=== PATIENT | female | born 1950 | race Caucasian/White ===

== ENCOUNTER 2020-08-25 09:16 | Inpatient (IN) | payer MEDICARE ==
[~2020-08-25 09:16] MED LIST: ASPIRIN EC81 MG PO; BUSPIRONE HCL10 MG PO; CEFDINIR300 MG PO; COZAAR50 MG PO; LEXAPRO20 MG PO; LIPITOR20 MG PO; NEURONTIN300 MG PO; NORVASC5 MG PO; PRILOSEC20 MG PO
[2020-08-25 09:43] LABS: BASOPHIL 0.3 % (0-2); EOSINOPHIL 0.5 % (0-7); HCT 35.3 % (37.0-47.0); HGB 11.7 g/dl (12.5-16.0); LYMPHOCYTE 29.5 % (15-48); MCH 28.3 pg (25.0-31.0); MCHC 33.1 g/dL (32.0-36.0); MCV 85.3 fL (78.0-100.0); MONOCYTE 8.2 % (0-12); MPV 11.2 fL (6.0-9.5); NRBC 0; PLT 207 K/uL (150-400); RBC 4.14 M/uL (4.20-5.40); RDW 15.1 % (11.5-14.0); WBC 9.8 K/uL (4.0-10.5)
[2020-08-25 09:46] LABS: INR 1.12 (0.9-1.2); PROTHROMBIN TIME 13.7 SECONDS (11.4-13.6)
[2020-08-25 09:53] LABS: BILIRUBIN - TOTAL 0.5 mg/dL (0.2-1.0); BUN/CREAT RATIO (CALC) 10.5 RATIO; CREATININE 2.77 mg/dL (0.51-0.95); GLOBULIN (CALCULATION) 3.1 g/dL; POTASSIUM 3.4 mmol/L (3.5-5.1); TOTAL PROTEIN 7.1 g/dL (6.4-8.2)
[2020-08-25 10:04] LABS: BILIRUBIN NEGATIVE (NEGATIVE); BLOOD 3+ Ery/uL (NEGATIVE); GLUCOSE (U) NORMAL (NORMAL); LEUKOCYTES 2+ Leu/uL (NEGATIVE); NITRITE NEGATIVE (NEGATIVE); PROTEIN 2+ mg/dL (NEGATIVE); SPECIFIC GRAVITY 1.025 (1.001-1.030); UROBILINOGEN 0.2 mg/dL (0.2-1.0); pH 5.5 (5.0-9.0)
[2020-08-25 10:08] LABS: CLARITY HAZY (CLEAR); COLOR STRAW (YELLOW)
[2020-08-25 10:22] LABS: BACTERIA 1+; SQUAMOUS EPITHELIAL CELLS 20-50; URINARY RBC 20-50
[2020-08-25] MEDS ORDERED: LYRICA 50MG CAP50 MG PO (15:00)
[2020-08-25] MEDS ORDERED: HYDROCODON-ACE1 EAC6 PO (15:01)
[2020-08-25] MEDS ORDERED: LEXAPRO20 MG PO (15:02)
[2020-08-25] MEDS ORDERED: BENTYL10 MG PO (15:02)
[2020-08-25] MEDS ORDERED: MAG-OXIDE 400M400 MG PO (15:02)
[2020-08-25] MEDS ORDERED: TOPROL XL 50 MG50 MG PO (15:03)
[2020-08-25 18:57] LABS: URINE CREATININE 51.55 mg/dL (29.00-226.00)
[2020-08-26 04:16] LABS: BASOPHIL 0.4 % (0-2); EOSINOPHIL 2.8 % (0-7); HCT 30.2 % (37.0-47.0); HGB 9.9 g/dl (12.5-16.0); LYMPHOCYTE 34.5 % (15-48); MCH 28.4 pg (25.0-31.0); MCHC 32.8 g/dL (32.0-36.0); MCV 86.5 fL (78.0-100.0); MONOCYTE 9.9 % (0-12); MPV 11.2 fL (6.0-9.5); NEUTROPHIL 52.2 % (41-80); NRBC 0; PLT 157 K/uL (150-400); RBC 3.49 M/uL (4.20-5.40); RDW 15.4 % (11.5-14.0); WBC 5.3 K/uL (4.0-10.5)
[2020-08-26 04:32] LABS: ALBUMIN 3.4 g/dL (3.4-5.0); BUN/CREAT RATIO (CALC) 12.4 RATIO; CREATININE 1.94 mg/dL (0.51-0.95); PHOSPHORUS 2.6 mg/dL (2.6-4.7); POTASSIUM 2.9 mmol/L (3.5-5.1)
[2020-08-27 04:20] LABS: BASOPHIL 0.5 % (0-2); EOSINOPHIL 2.3 % (0-7); HCT 33.2 % (37.0-47.0); HGB 10.6 g/dl (12.5-16.0); LYMPHOCYTE 38.2 % (15-48); MCH 28.5 pg (25.0-31.0); MCHC 31.9 g/dL (32.0-36.0); MCV 89.2 fL (78.0-100.0); MONOCYTE 14.3 % (0-12); MPV 11.1 fL (6.0-9.5); NEUTROPHIL 44.2 % (41-80); NRBC 0; PLT 147 K/uL (150-400); RBC 3.72 M/uL (4.20-5.40); RDW 16.2 % (11.5-14.0); WBC 3.9 K/uL (4.0-10.5)
[2020-08-27 04:51] LABS: BUN/CREAT RATIO (CALC) 8.3 RATIO; CREATININE 1.32 mg/dL (0.51-0.95)
[2020-08-27 04:52] LABS: POTASSIUM 4.7 mmol/L (3.5-5.1)
[2020-08-27] MEDS ORDERED: PROTONIX 40MG T40 MG PO (16:08)
== END 2020-08-27 17:00 | disposition home or self-care (01) | DRG 381 ==
LOC: FER 09:16 → FMS 13:16
PROVIDERS: Emergency Medicine; Student in an Organized Health Care Education/Training Program; ADMIT Allergy & Immunology Allergy
PROC: 0DB58ZX Excision of Esophagus, Via Natural or Artificial Opening Endoscopic, Diagnostic (ICD-10-PCS; principal; 2020-08-27 11:30)
PROC: 0DB78ZX Excision of Stomach, Pylorus, Via Natural or Artificial Opening Endoscopic, Diagnostic (ICD-10-PCS; 2020-08-27 11:30)
DX: K31.1 Adult hypertrophic pyloric stenosis (principal); N39.0 Urinary tract infection, site not specified; E87.1 Hypo-osmolality and hyponatremia; N17.9 Acute kidney failure, unspecified; I25.10 Atherosclerotic heart disease of native coronary artery without angina pectoris; K21.9 Gastro-esophageal reflux disease without esophagitis; I10 Essential (primary) hypertension; G89.29 Other chronic pain; Z20.828 Contact with and (suspected) exposure to other viral communicable diseases; F41.9 Anxiety disorder, unspecified; F32.9 Major depressive disorder, single episode, unspecified; E78.5 Hyperlipidemia, unspecified; K20.90 Esophagitis, unspecified without bleeding; E03.9 Hypothyroidism, unspecified; M54.5 Low back pain; G43.909 Migraine, unspecified, not intractable, without status migrainosus; M85.80 Other specified disorders of bone density and structure, unspecified site; Z90.49 Acquired absence of other specified parts of digestive tract; Z90.710 Acquired absence of both cervix and uterus; Z95.5 Presence of coronary angioplasty implant and graft; E87.6 Hypokalemia; D64.9 Anemia, unspecified; E86.0 Dehydration
CPT/HCPCS: 36415; 80048; 80053; 80069; 81001; 82271; 82570; 84300; 85025; 85610; 87076; 87088; 88305; 94640; C9113; J0360; J0696; J2270; J2405; J2704; J3480; J7030; J7120; U0002

== ENCOUNTER 2021-05-02 11:50 | Inpatient (IN) | payer OTHER ==
[~2021-05-02] VITALS: Ht 162.6 cm; Wt 79.1 kg
[~2021-05-02 11:50] MED LIST changes: +BENTYL10 MG PO; +HYDROCODON-ACE1 EAC6 PO; +LYRICA 50MG CAP50 MG PO; +MAG-OXIDE 400M400 MG PO; +PROTONIX 40MG T40 MG PO; +TOPROL XL 50 MG50 MG PO
[2021-05-02 13:10] LABS: BASOPHIL 0.2 % (0-2); EOSINOPHIL 0.4 % (0-7); HCT 32.5 % (37.0-47.0); HGB 10.6 g/dl (12.5-16.0); LYMPHOCYTE 16.1 % (15-48); MCH 28.2 pg (25.0-31.0); MCHC 32.6 g/dL (32.0-36.0); MCV 86.4 fL (78.0-100.0); MONOCYTE 8.8 % (0-12); MPV 10.9 fL (6.0-9.5); NEUTROPHIL 74.1 % (41-80); NRBC 0; PLT 166 K/uL (150-400); RBC 3.76 M/uL (4.20-5.40); RDW 16.6 % (11.5-14.0); WBC 5.5 K/uL (4.0-10.5)
[2021-05-02 13:14] LABS: INR 1.03 (0.9-1.2); PROTHROMBIN TIME 12.9 SECONDS (11.8-13.4); PTT 30.1 SECONDS (24.4-34.7)
[2021-05-02 13:48] LABS: ALBUMIN 3.5 g/dL (3.4-5.0); BILIRUBIN - TOTAL 0.4 mg/dL (0.2-1.0); BUN/CREAT RATIO (CALC) 7.1 RATIO; C-REACTIVE PROTEIN 5.3 mg/dL (<=0.90); CREATININE 7.31 mg/dL (0.51-0.95); GLOBULIN (CALCULATION) 3.5 g/dL; MAGNESIUM 1.7 mg/dL (1.8-2.4); POTASSIUM 3.9 mmol/L (3.5-5.1)
[2021-05-02 13:52] LABS: IRON % SATURATION 5.5 %SAT (20-50)
[2021-05-02 14:02] LABS: LACTIC ACID 1.5 mmol/L (0.4-1.9)
[2021-05-02 15:40] LABS: BILIRUBIN NEGATIVE (NEGATIVE); BLOOD NEGATIVE Ery/uL (NEGATIVE); CLARITY CLEAR (CLEAR); COLOR YELLOW (YELLOW); GLUCOSE (U) NORMAL (NORMAL); LEUKOCYTES NEGATIVE Leu/uL (NEGATIVE); NITRITE NEGATIVE (NEGATIVE); PROTEIN TRACE (LOW) mg/dL (NEGATIVE); UROBILINOGEN 0.2 mg/dL (0.2-1.0); pH 5.5 (5.0-9.0)
[2021-05-02 15:44] LABS: BACTERIA TRACE; URINARY WBC RARE
[2021-05-02 21:25] LABS: BUN/CREAT RATIO (CALC) 7.4 RATIO; CREATININE 6.99 mg/dL (0.51-0.95); POTASSIUM 3.5 mmol/L (3.5-5.1)
[2021-05-03 07:28] LABS: BASOPHIL 0.2 % (0-2); EOSINOPHIL 2.2 % (0-7); HCT 34.5 % (37.0-47.0); HGB 11.2 g/dl (12.5-16.0); MCH 28.9 pg (25.0-31.0); MCHC 32.5 g/dL (32.0-36.0); MCV 89.1 fL (78.0-100.0); MONOCYTE 9.8 % (0-12); MPV 10.5 fL (6.0-9.5); NEUTROPHIL 59.6 % (41-80); NRBC 0; PLT 162 K/uL (150-400); RBC 3.87 M/uL (4.20-5.40); RDW 17.1 % (11.5-14.0); WBC 4.1 K/uL (4.0-10.5)
[2021-05-03 07:44] LABS: ALBUMIN 3.5 g/dL (3.4-5.0); BILIRUBIN - TOTAL 0.4 mg/dL (0.2-1.0); CREATININE 6.63 mg/dL (0.51-0.95); POTASSIUM 3.6 mmol/L (3.5-5.1); TOTAL PROTEIN 6.5 g/dL (6.4-8.2)
[2021-05-03 16:30] LABS: URINE CREATININE 61.31 mg/dL (29.00-226.00); URINE TOTAL PROTEIN-RANDOM 14.7 mg/dL (<11.9)
[2021-05-04 04:53] LABS: CREATININE 5.01 mg/dL (0.51-0.95); FOLIC ACID (SERUM) 12.8 ng/mL (8.6-58.9); POTASSIUM 3.8 mmol/L (3.5-5.1)
[2021-05-05 03:45] LABS: BASOPHIL 0.3 % (0-2); EOSINOPHIL 1.6 % (0-7); HGB 9.7 g/dl (12.5-16.0); LYMPHOCYTE 38.2 % (15-48); MCHC 31.3 g/dL (32.0-36.0); MCV 89.6 fL (78.0-100.0); MONOCYTE 12.9 % (0-12); MPV 10.6 fL (6.0-9.5); NEUTROPHIL 46.7 % (41-80); NRBC 0; PLT 145 K/uL (150-400); RBC 3.46 M/uL (4.20-5.40); WBC 3.2 K/uL (4.0-10.5)
[2021-05-05 04:07] LABS: BUN/CREAT RATIO (CALC) 14.1 RATIO; CREATININE 3.05 mg/dL (0.51-0.95); MAGNESIUM 1.2 mg/dL (1.8-2.4); POTASSIUM 3.6 mmol/L (3.5-5.1)
--- NOTE | 2021-05-05 11:50 | NUR ---
NOTIFIED OF PATIENT C/O NAUSEA, BLOATING, CONSTIPATION COMPAZINE ORDERRED, IV MAG WELL LAXATIVES PATIENT HAS HAD BM SINCE AND REFUSED LAXATIVES
[2021-05-06 06:56] LABS: BASOPHIL 0.2 % (0-2); EOSINOPHIL 0.9 % (0-7); HCT 30.8 % (37.0-47.0); HGB 9.7 g/dl (12.5-16.0); LYMPHOCYTE 27.8 % (15-48); MCH 28.4 pg (25.0-31.0); MCHC 31.5 g/dL (32.0-36.0); MCV 90.1 fL (78.0-100.0); MONOCYTE 7.7 % (0-12); MPV 10.6 fL (6.0-9.5); NEUTROPHIL 63.2 % (41-80); NRBC 0; PLT 150 K/uL (150-400); RBC 3.42 M/uL (4.20-5.40); RDW 18.1 % (11.5-14.0); WBC 4.3 K/uL (4.0-10.5)
[2021-05-06 07:25] LABS: BUN/CREAT RATIO (CALC) 18.4 RATIO; CREATININE 1.96 mg/dL (0.51-0.95); MAGNESIUM 1.7 mg/dL (1.8-2.4); PHOSPHORUS 3.9 mg/dL (2.6-4.7); POTASSIUM 3.7 mmol/L (3.5-5.1)
[2021-05-07 05:51] LABS: BASOPHIL 0 % (0-2); EOSINOPHIL 0 % (0-7); HCT 33.7 % (37.0-47.0); HGB 10.5 g/dl (12.5-16.0); MCH 28.8 pg (25.0-31.0); MCHC 31.2 g/dL (32.0-36.0); MCV 92.3 fL (78.0-100.0); MPV 10.4 fL (6.0-9.5); NEUTROPHIL 87.1 % (41-80); NRBC 0; PLT 130 K/uL (150-400); RBC 3.65 M/uL (4.20-5.40); RDW 17.8 % (11.5-14.0); WBC 3.5 K/uL (4.0-10.5)
[2021-05-07 06:29] LABS: ALBUMIN 3.2 g/dL (3.4-5.0); BILIRUBIN - TOTAL 0.5 mg/dL (0.2-1.0); BUN/CREAT RATIO (CALC) 20.4 RATIO; CREATININE 1.47 mg/dL (0.51-0.95); GLOBULIN (CALCULATION) 3.1 g/dL; MAGNESIUM 1.5 mg/dL (1.8-2.4); POTASSIUM 4.6 mmol/L (3.5-5.1); TOTAL PROTEIN 6.3 g/dL (6.4-8.2)
--- NOTE | 2021-05-07 13:46 | NUR ---
05/07 Ms. Ricardo lived alone and was independent prior to admission. Dana is recommending SNF following discharge. Ms. Ricardo chose [facility], [facility], [facility] or [facility]. She requested for her daughter, Cintia Ann, to also be consulted re: choices. Ms. Ann was in agreement with Ms. Ricardo's choices. SNF will be persued when patient is medically stable.
[2021-05-08 05:55] LABS: BASOPHIL 0.2 % (0-2); EOSINOPHIL 0 % (0-7); HCT 31.3 % (37.0-47.0); HGB 9.7 g/dl (12.5-16.0); LYMPHOCYTE 13.6 % (15-48); MCH 28.5 pg (25.0-31.0); MCV 92.1 fL (78.0-100.0); MONOCYTE 6.5 % (0-12); MPV 10.8 fL (6.0-9.5); NEUTROPHIL 79.1 % (41-80); NRBC 0; PLT 136 K/uL (150-400); RDW 18.1 % (11.5-14.0); WBC 4.9 K/uL (4.0-10.5)
[2021-05-08 06:23] LABS: BUN/CREAT RATIO (CALC) 23.5 RATIO; CREATININE 1.19 mg/dL (0.51-0.95); MAGNESIUM 1.7 mg/dL (1.8-2.4); POTASSIUM 4.2 mmol/L (3.5-5.1)
--- NOTE | 2021-05-08 12:16 | NUR ---
05/08/21 [facility] accepted Ms. Ricardo for today. Please call report to: [phone] and fax DS to: [phone]. Cintia Ann, daughter, will transport. 02 is not required per MS STEVEN Miramontes.
[2021-05-08] MEDS ORDERED: AZITHROMYCIN250 MG PO (12:23)
[2021-05-08] MEDS ORDERED: HYDROCODON-ACE1 EAC6 PO (15:29)
== END 2021-05-08 16:21 | DRG 682 ==
LOC: FER 11:50 → FTCU 21:45 → FMS 21:45
PROVIDERS: Emergency Medicine; Emergency Medicine Emergency Medical Services; Family Medicine; Internal Medicine Nephrology; Nurse Practitioner; ADMIT Internal Medicine
DX: N17.9 Acute kidney failure, unspecified (principal); J96.01 Acute respiratory failure with hypoxia; J18.9 Pneumonia, unspecified organism; J98.11 Atelectasis; E83.42 Hypomagnesemia; Z20.822 Contact with and (suspected) exposure to COVID-19; G25.1 Drug-induced tremor; T42.6X5A Adverse effect of other antiepileptic and sedative-hypnotic drugs, initial encounter; K59.00 Constipation, unspecified; E87.70 Fluid overload, unspecified; I10 Essential (primary) hypertension; E03.9 Hypothyroidism, unspecified; E78.5 Hyperlipidemia, unspecified; K21.9 Gastro-esophageal reflux disease without esophagitis; G89.29 Other chronic pain; G43.909 Migraine, unspecified, not intractable, without status migrainosus; E66.01 Morbid (severe) obesity due to excess calories; M85.80 Other specified disorders of bone density and structure, unspecified site; J44.9 Chronic obstructive pulmonary disease, unspecified; I25.2 Old myocardial infarction; Z90.49 Acquired absence of other specified parts of digestive tract; Z90.710 Acquired absence of both cervix and uterus; Z88.0 Allergy status to penicillin; Z88.8 Allergy status to other drugs, medicaments and biological substances; Z88.7 Allergy status to serum and vaccine; Z79.82 Long term (current) use of aspirin; Z79.899 Other long term (current) drug therapy; Z98.890 Other specified postprocedural states
CPT/HCPCS: 36415; 36600; 70450; 70544; 70547; 70551; 71045; 71250; 72131; 76770; 80048; 80053; 81001; 82436; 82550; 82570; 82607; 82728; 82746; 82803; 83540; 83550; 83605; 83615; 83735; 83880; 84100; 84145; 84156; 84300; 84443; 84484; 85025; 85610; 85730; 86140; 87040; 93005; 94640; 96365; 96375; 97110; 97162; 97166; 97530; 97530-GP; 97535; J0456; J0692; J0780; J1170; J1644; J2060; J2185; J2405; J2916; J2930; J3475; J7050; J7120; U0002

== ENCOUNTER 2021-07-09 14:04 | Day surgery (SDCO) | payer OTHER ==
[~2021-07-09] VITALS: Ht 163 cm; Wt 79.0 kg
[~2021-07-09 14:04] MED LIST changes: +AZITHROMYCIN250 MG PO
[2021-07-09 15:36] LABS: BASOPHIL 0.1 % (0-2); EOSINOPHIL 0 % (0-7); HCT 28.8 % (37.0-47.0); LYMPHOCYTE 13.6 % (15-48); MCH 28.5 pg (25.0-31.0); MCHC 31.3 g/dL (32.0-36.0); MCV 91.1 fL (78.0-100.0); MONOCYTE 6.7 % (0-12); MPV 10.6 fL (6.0-9.5); NRBC 0; PLT 207 K/uL (150-400); RBC 3.16 M/uL (4.20-5.40); RDW 15.6 % (11.5-14.0); WBC 8.3 K/uL (4.0-10.5)
[2021-07-09 15:47] LABS: INR 1.13 (0.9-1.2); PROTHROMBIN TIME 13.9 SECONDS (11.8-13.4); PTT 23.6 SECONDS (24.4-34.7)
[2021-07-09 15:59] LABS: LACTIC ACID 1.5 mmol/L (0.4-1.9)
[2021-07-09 16:05] LABS: ALBUMIN 3.4 g/dL (3.4-5.0); BILIRUBIN - TOTAL 0.5 mg/dL (0.2-1.0); BUN/CREAT RATIO (CALC) 33.7 RATIO; CREATININE 1.01 mg/dL (0.51-0.95); GLOBULIN (CALCULATION) 2.8 g/dL; TOTAL PROTEIN 6.2 g/dL (6.4-8.2)
[2021-07-09 16:23] LABS: BILIRUBIN NEGATIVE (NEGATIVE); BLOOD 3+ Ery/uL (NEGATIVE); CLARITY CLEAR (CLEAR); COLOR YELLOW (YELLOW); GLUCOSE (U) NORMAL (NORMAL); LEUKOCYTES NEGATIVE Leu/uL (NEGATIVE); NITRITE NEGATIVE (NEGATIVE); PROTEIN TRACE (LOW) mg/dL (NEGATIVE); UROBILINOGEN 0.2 mg/dL (0.2-1.0)
[2021-07-09 16:32] LABS: MUCOUS TRACE; URINARY WBC RARE
[2021-07-10 05:53] LABS: BASOPHIL 0 % (0-2); EOSINOPHIL 0.2 % (0-7); HCT 25.8 % (37.0-47.0); HGB 8.1 g/dl (12.5-16.0); LYMPHOCYTE 20.9 % (15-48); MCH 28.5 pg (25.0-31.0); MCHC 31.4 g/dL (32.0-36.0); MCV 90.8 fL (78.0-100.0); MONOCYTE 8.2 % (0-12); MPV 10.9 fL (6.0-9.5); NEUTROPHIL 70.2 % (41-80); NRBC 0; PLT 192 K/uL (150-400); RBC 2.84 M/uL (4.20-5.40); RDW 15.6 % (11.5-14.0); WBC 6.2 K/uL (4.0-10.5)
[2021-07-10 06:06] LABS: BILIRUBIN - TOTAL 0.4 mg/dL (0.2-1.0); CREATININE 0.92 mg/dL (0.51-0.95); GLOBULIN (CALCULATION) 2.5 g/dL; POTASSIUM 3.5 mmol/L (3.5-5.1); TOTAL PROTEIN 5.5 g/dL (6.4-8.2)
[2021-07-11 06:20] LABS: HCT 26.4 % (37.0-47.0); HGB 8.3 g/dl (12.5-16.0); MCHC 31.4 g/dL (32.0-36.0); MCV 89.2 fL (78.0-100.0); MPV 10.3 fL (6.0-9.5); RBC 2.96 M/uL (4.20-5.40); RDW 15.4 % (11.5-14.0); WBC 6.7 K/uL (4.0-10.5)
[2021-07-11 07:08] LABS: BUN/CREAT RATIO (CALC) 15.4 RATIO; CREATININE 0.78 mg/dL (0.51-0.95)
--- NOTE | 2021-07-12 11:54 | NUR ---
07/12/21 [facility] reports to have called Lupe Todd, [facility], for orders. Ms. Todd said the patient was current with [facility]. [facility] was contacted and has not accepted patient.
== END 2021-07-11 12:18 | disposition home health service (06) ==
LOC: FER 14:04 → FMS 16:52
PROVIDERS: Emergency Medicine; Nurse Practitioner; ADMIT Hospitalist
DX: T79.6XXA Traumatic ischemia of muscle, initial encounter (principal); R53.1 Weakness; I25.10 Atherosclerotic heart disease of native coronary artery without angina pectoris; Z95.5 Presence of coronary angioplasty implant and graft; I25.2 Old myocardial infarction; I10 Essential (primary) hypertension; E03.9 Hypothyroidism, unspecified; E78.5 Hyperlipidemia, unspecified; K21.9 Gastro-esophageal reflux disease without esophagitis; G89.29 Other chronic pain; M54.9 Dorsalgia, unspecified; Z88.0 Allergy status to penicillin; Z88.8 Allergy status to other drugs, medicaments and biological substances; Z20.822 Contact with and (suspected) exposure to COVID-19; Z79.82 Long term (current) use of aspirin; R94.31 Abnormal electrocardiogram [ECG] [EKG]; Z91.81 History of falling; Z86.73 Personal history of transient ischemic attack (TIA), and cerebral infarction without residual deficits
CPT/HCPCS: 36415; 70450; 71045; 72072; 72170; 80048; 80053; 81001; 82550; 82553; 83605; 84484; 85025; 85610; 85730; 87040; 87088; 93005; 97162; 97166; 97530-GP; 97535; G0378; J2405; J7030; U0002

== ENCOUNTER 2021-08-11 15:08 | Emergency (ER) | payer OTHER | END 2021-08-11 16:38 | disposition home or self-care (01) | LOC: FER 15:08 | DX: S93.401A Sprain of unspecified ligament of right ankle, initial encounter (principal); I10 Essential (primary) hypertension; Z88.0 Allergy status to penicillin; X50.1XXA Overexertion from prolonged static or awkward postures, initial encounter; Y93.89 Activity, other specified; Y92.009 Unspecified place in unspecified non-institutional (private) residence as the place of occurrence of the external cause ==

== ENCOUNTER 2022-01-11 04:45 | Day surgery (SDCO) | payer OTHER ==
[~2022-01-11] VITALS: Ht 162.6 cm; Wt 68.2 kg
[~2022-01-11 04:45] MED LIST changes: -LIPITOR20 MG PO; +LIPITOR40 MG PO
[2022-01-11 06:20] LABS: BASOPHIL 0.5 % (0-2); EOSINOPHIL 4.6 % (0-7); HCT 30.9 % (37.0-47.0); HGB 9.9 g/dl (12.5-16.0); LYMPHOCYTE 17.2 % (15-48); MCH 25.4 pg (25.0-31.0); MCV 79.2 fL (78.0-100.0); MONOCYTE 8.4 % (0-12); MPV 9.7 fL (6.0-9.5); NEUTROPHIL 68.9 % (41-80); NRBC 0; PLT 191 K/uL (150-400); RDW 23.6 % (11.5-14.0); WBC 8.2 K/uL (4.0-10.5)
[2022-01-11 06:41] LABS: INR 1.05 (0.9-1.2); PROTHROMBIN TIME 13.1 SECONDS (11.8-13.4); PTT 33.2 SECONDS (24.4-34.7)
[2022-01-11 06:42] LABS: BUN/CREAT RATIO (CALC) 17.6 RATIO; CREATININE 1.25 mg/dL (0.51-0.95); POTASSIUM 3.8 mmol/L (3.5-5.1)
[2022-01-11 09:32] LABS: BILIRUBIN NEGATIVE (NEGATIVE); BLOOD NEGATIVE Ery/uL (NEGATIVE); CLARITY CLEAR (CLEAR); COLOR YELLOW (YELLOW); GLUCOSE (U) NORMAL (NORMAL); LEUKOCYTES NEGATIVE Leu/uL (NEGATIVE); NITRITE NEGATIVE (NEGATIVE); PROTEIN NEGATIVE (NEGATIVE); UROBILINOGEN 0.2 mg/dL (0.2-1.0)
[2022-01-11 11:00] LABS: CORONAVIRUS 2019 SARS-COV-2 NEGATIVE (NEGATIVE); INFLUENZA A NAA NEGATIVE (NEGATIVE)
[2022-01-11] MEDS ORDERED: CYMBALTA 30MG C30 MG PO (16:08)
[2022-01-11] MEDS ORDERED: IMITREX50 MG PO (16:18)
[2022-01-11] MEDS ORDERED: BUSPAR5 MG PO (16:19)
[2022-01-11] MEDS ORDERED: COZAAR100 MG PO (16:19)
[2022-01-11] MEDS ORDERED: ARICEPT 5MG TABL5 MG PO (16:20)
[2022-01-11] MEDS ORDERED: DESYREL50 MG PO (16:20)
[2022-01-11] MEDS ORDERED: VENTOLIN HFA IN18 GM INH (16:21)
[2022-01-11] MEDS ORDERED: SYNTHROID25 MCG PO (16:21)
[2022-01-12 03:53] LABS: BASOPHIL 0.5 % (0-2); HCT 30.9 % (37.0-47.0); HGB 9.4 g/dl (12.5-16.0); LYMPHOCYTE 29.3 % (15-48); MCH 25.1 pg (25.0-31.0); MCHC 30.4 g/dL (32.0-36.0); MCV 82.6 fL (78.0-100.0); MONOCYTE 14.1 % (0-12); MPV 9.7 fL (6.0-9.5); NEUTROPHIL 50.8 % (41-80); NRBC 0; PLT 155 K/uL (150-400); RBC 3.74 M/uL (4.20-5.40); WBC 3.8 K/uL (4.0-10.5)
[2022-01-12 04:12] LABS: BUN/CREAT RATIO (CALC) 14.7 RATIO; CREATININE 0.95 mg/dL (0.51-0.95); POTASSIUM 4.1 mmol/L (3.5-5.1)
[2022-01-12] MEDS ORDERED: PERCOCET 5-3251 EACH PO ×2 (09:25→09:32)
[2022-01-12] MEDS ORDERED: DULCOLAX5 MG PO (09:25)
== END 2022-01-12 15:29 | disposition home health service (06) ==
LOC: FER 04:45 → FMS 09:09
PROVIDERS: Emergency Medicine; Internal Medicine; ADMIT Allergy & Immunology Allergy
DX: S42.001A Fracture of unspecified part of right clavicle, initial encounter for closed fracture (principal); E87.1 Hypo-osmolality and hyponatremia; N17.9 Acute kidney failure, unspecified; J45.909 Unspecified asthma, uncomplicated; I25.10 Atherosclerotic heart disease of native coronary artery without angina pectoris; I25.2 Old myocardial infarction; I10 Essential (primary) hypertension; E11.9 Type 2 diabetes mellitus without complications; E03.9 Hypothyroidism, unspecified; E78.5 Hyperlipidemia, unspecified; K21.9 Gastro-esophageal reflux disease without esophagitis; W19.XXXA Unspecified fall, initial encounter; Y92.009 Unspecified place in unspecified non-institutional (private) residence as the place of occurrence of the external cause; Z20.822 Contact with and (suspected) exposure to COVID-19; Z95.5 Presence of coronary angioplasty implant and graft; Z88.0 Allergy status to penicillin; Z88.7 Allergy status to serum and vaccine; Z88.8 Allergy status to other drugs, medicaments and biological substances
CPT/HCPCS: 36415; 70450; 71045; 71250; 72125; 73030; 80048; 81003; 83930; 83935; 84300; 85025; 85610; 85730; 93005; 96374; 97161; G0378; J2405; J7030; J7120; U0002

== ENCOUNTER 2022-03-28 10:57 | Emergency (ER) | payer OTHER ==
[~2022-03-28 10:57] MED LIST changes: +ARICEPT 5MG TABL5 MG PO; +BLACK COHOSH540 MG PO; +BUSPAR5 MG PO; +COZAAR100 MG PO; +CRANBERRY400 M1 PO; +CYMBALTA 30MG C30 MG PO; +DESYREL50 MG PO; +DULCOLAX5 MG PO; +ESOMEPRAZOLE MA40 MG PO; +IMITREX50 MG PO; +IRON18 MG PO; +LYRICA25 MG PO; +NORCO 5/3251 EACH PO; +PERCOCET 5-3251 EACH PO; +SYNTHROID25 MCG PO; +TOPROL XL 25MG25 MG PO; +VENTOLIN HFA IN18 GM INH; +VITAMIN B125000 MCG PO; +VITAMIN D325 MC2 PO
[2022-03-28 11:50] LABS: BASOPHIL 0.3 % (0-2); EOSINOPHIL 0.7 % (0-7); HCT 34.6 % (37.0-47.0); HGB 11.2 g/dl (12.5-16.0); LYMPHOCYTE 10.3 % (15-48); MCH 28.5 pg (25.0-31.0); MCHC 32.4 g/dL (32.0-36.0); MONOCYTE 7.3 % (0-12); MPV 9.5 fL (6.0-9.5); NEUTROPHIL 81.2 % (41-80); NRBC 0; PLT 130 K/uL (150-400); RBC 3.93 M/uL (4.20-5.40); RDW 16.1 % (11.5-14.0); WBC 9.1 K/uL (4.0-10.5)
[2022-03-28 12:38] LABS: ALBUMIN 3.3 g/dL (3.4-5.0); BILIRUBIN - TOTAL 0.8 mg/dL (0.2-1.0); BUN/CREAT RATIO (CALC) 13.9 RATIO; CREATININE 1.94 mg/dL (0.51-0.95); GLOBULIN (CALCULATION) 3.6 g/dL; MAGNESIUM 1.7 mg/dL (1.8-2.4); POTASSIUM 4.5 mmol/L (3.5-5.1); TOTAL PROTEIN 6.9 g/dL (6.4-8.2)
== END 2022-03-28 14:18 | disposition home or self-care (01) ==
LOC: FER 10:57
PROVIDERS: Emergency Medicine
DX: E87.1 Hypo-osmolality and hyponatremia (principal); Z88.0 Allergy status to penicillin; Z88.5 Allergy status to narcotic agent
CPT/HCPCS: 36415; 80053; 83735; 85025; 93005

== ENCOUNTER 2022-03-31 22:11 | Emergency (ER) | payer OTHER ==
[2022-03-31 22:32] LABS: BASOPHIL 0.2 % (0-2); EOSINOPHIL 0.7 % (0-7); HGB 12.1 g/dl (12.5-16.0); LYMPHOCYTE 17.9 % (15-48); MCH 28.6 pg (25.0-31.0); MCHC 32.7 g/dL (32.0-36.0); MCV 87.5 fL (78.0-100.0); MONOCYTE 8.5 % (0-12); NEUTROPHIL 72.4 % (41-80); NRBC 0; PLT 214 K/uL (150-400); RBC 4.23 M/uL (4.20-5.40); RDW 15.9 % (11.5-14.0); WBC 9.1 K/uL (4.0-10.5)
[2022-03-31 22:51] LABS: ALBUMIN 3.9 g/dL (3.4-5.0); BILIRUBIN - TOTAL 0.5 mg/dL (0.2-1.0); BUN/CREAT RATIO (CALC) 18.8 RATIO; CREATININE 1.81 mg/dL (0.51-0.95); GLOBULIN (CALCULATION) 3.9 g/dL; POTASSIUM 4.9 mmol/L (3.5-5.1); TOTAL PROTEIN 7.8 g/dL (6.4-8.2)
[2022-03-31 23:20] LABS: BILIRUBIN 1+ mg/dL (NEGATIVE); BLOOD 3+ Ery/uL (NEGATIVE); CLARITY CLEAR (CLEAR); COLOR YELLOW (YELLOW); GLUCOSE (U) NORMAL (NORMAL); LEUKOCYTES 2+ Leu/uL (NEGATIVE); NITRITE NEGATIVE (NEGATIVE); PROTEIN 1+ mg/dL (NEGATIVE); SPECIFIC GRAVITY 1.015 (1.001-1.030); UROBILINOGEN 0.2 mg/dL (0.2-1.0); pH 5.5 (5.0-9.0)
[2022-03-31] MEDS ORDERED: ONDANSETRON ODT4 MG PO (23:28)
[2022-03-31 23:29] LABS: URINARY WBC TNTC
[2022-03-31 23:30] LABS: URINARY RBC 20-50
[2022-03-31 23:31] LABS: BACTERIA 1+
[2022-03-31] MEDS ORDERED: MACROBID100 MG PO (23:32)
[2022-03-31] MEDS ORDERED: PRILOSEC20 MG PO (23:35)
== END 2022-03-31 23:40 | disposition home or self-care (01) ==
LOC: FER 22:11
PROVIDERS: Emergency Medicine
DX: R10.13 Epigastric pain (principal); I12.9 Hypertensive chronic kidney disease with stage 1 through stage 4 chronic kidney disease, or unspecified chronic kidney disease; N18.9 Chronic kidney disease, unspecified; I25.10 Atherosclerotic heart disease of native coronary artery without angina pectoris; Z95.5 Presence of coronary angioplasty implant and graft; Z86.73 Personal history of transient ischemic attack (TIA), and cerebral infarction without residual deficits; Z88.0 Allergy status to penicillin; Z88.5 Allergy status to narcotic agent
CPT/HCPCS: 36415; 80053; 81001; 83690; 84484; 85025; J2270; J2405; J7040